=== PATIENT | female | born 2005 | race Caucasian/White ===

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

== ENCOUNTER 2024-02-11 22:06 | Emergency (ER) | payer OTHER ==
[~2024-02-11] VITALS: Ht 165.1 cm; Wt 57.6 kg
[2024-02-11 23:00] VITALS: BP 122/81; PULSE 102; RESP 16; TEMP 97.2; O2SAT 99
[2024-02-12 00:50] LABS: FLU A ANTIGEN negative (NEGATIVE); FLU B ANTIGEN NEGATIVE (NEGATIVE)
[2024-02-12 00:55] LABS: APPEARANCE,URINE CLEAR (CLEAR); BILIRUBIN,URINE NEGATIVE (NEGATIVE); BLOOD, URINE 1+ (NEGATIVE); COLOR,URINE YELLOW (YELLOW); LEUKOCYTE ESTERASE ,URINE NEGATIVE (NEGATIVE); NITRITE, URINE NEGATIVE (NEGATIVE); PROTEIN,URINE NEGATIVE (NEGATIVE); UGLUCOSE NEGATIVE (NEGATIVE)
[2024-02-12] MEDS ORDERED: IBUP-2213 PO (01:23)
[2024-02-12] MEDS ORDERED: ONDA8TAB87 PO (01:23)
[2024-02-12] MEDS: ONDANSETRON 4 MG ODT PO ONE (01:36)
[2024-02-12] MEDS: KETOROLAC 60 MG/2 ML VIAL IM ONE (01:38)
[2024-02-12 01:52] VITALS: BP 122/81; PULSE 102; RESP 16; TEMP 97.2; O2SAT 99
== END 2024-02-12 01:52 | disposition home or self-care (01) ==
LOC: MED 22:06
DX: M79.10 Myalgia, unspecified site (principal); R50.9 Fever, unspecified; R11.2 Nausea with vomiting, unspecified; Z20.822 Contact with and (suspected) exposure to COVID-19
CPT/HCPCS: 81003; 81025; 87426; 87804; 96372; 99283; J1885; Q0162